=== PATIENT | male | born 1950 | race African-American/Black ===

== ENCOUNTER 2019-04-09 08:47 | Emergency (ER) | payer MEDICARE, OTHER ==
[~2019-04-09] VITALS: Ht 172.7 cm; Wt 65.0 kg
[~2019-04-09 08:47] MED LIST: ASPI-1393 PO; LISI40TA4 PO; METF-414 PO; PANT40TA4 PO; TERA5CAP4 PO
[2019-04-09] MEDS ORDERED: TETANUS, DIPHTHERIA, PERTUSSIS VAC/PF 0.5ML (>7YR OLD) IM ONE (09:30)
[2019-04-09] MEDS ORDERED: BACITRACIN ZINC OINT UDPKT TOP ONE (09:30)
[2019-04-09] MEDS ORDERED: TRAMADOL 50MG TABLET PO ONE (09:45)
[2019-04-09 13:00] VITALS: BP 136/62
== END 2019-04-09 13:11 | disposition home or self-care (01) ==
LOC: ER 08:47
DX: S90.812A Abrasion, left foot, initial encounter (principal); S90.811A Abrasion, right foot, initial encounter; W22.8XXA Striking against or struck by other objects, initial encounter; Y93.89 Activity, other specified; Y92.89 Other specified places as the place of occurrence of the external cause; Y99.8 Other external cause status; F32.9 Major depressive disorder, single episode, unspecified; E11.9 Type 2 diabetes mellitus without complications; K21.9 Gastro-esophageal reflux disease without esophagitis; E78.00 Pure hypercholesterolemia, unspecified; I10 Essential (primary) hypertension; F17.200 Nicotine dependence, unspecified, uncomplicated; F12.10 Cannabis abuse, uncomplicated; Z79.82 Long term (current) use of aspirin; Z79.899 Other long term (current) drug therapy
CPT/HCPCS: 73630; 90471; 90715; 99283

== ENCOUNTER 2019-04-10 12:00 | Emergency (ER) | payer OTHER ==
[~2019-04-10] VITALS: Ht 172.7 cm; Wt 117.0 kg
[2019-04-10] MEDS ORDERED: CLINDAMYCIN 900 MG in DEXTROSE 5% WATER 50 ML IV ONE (15:30)
[2019-04-10] MEDS ORDERED: HYDROCODONE/ACETAMINOPHEN 5/325MG TABLET PO ONE (15:30)
[2019-04-10] MEDS ORDERED: KETOROLAC 15MG/ML VIAL IV ONE (15:30)
[2019-04-10] MEDS ORDERED: SODIUM CHLORIDE 0.9% 500 ML IV ONE (15:30)
[2019-04-10 17:45] VITALS: BP 135/78
== END 2019-04-10 17:52 | disposition home or self-care (01) ==
LOC: ER 13:12
DX: L03.116 Cellulitis of left lower limb (principal); L03.115 Cellulitis of right lower limb; E11.628 Type 2 diabetes mellitus with other skin complications; I10 Essential (primary) hypertension; Z79.82 Long term (current) use of aspirin
CPT/HCPCS: 96365; 96375; 99283; J1885; J3490; J7040; J7060

== ENCOUNTER 2019-04-11 17:46 | Emergency (ER) | payer OTHER ==
[~2019-04-11] VITALS: Ht 172.7 cm; Wt 118.0 kg
[2019-04-11 23:43] VITALS: BP 148/76
== END 2019-04-11 23:46 | disposition home or self-care (01) ==
LOC: ER 17:46
DX: S91.302A Unspecified open wound, left foot, initial encounter (principal); S91.301A Unspecified open wound, right foot, initial encounter; X58.XXXA Exposure to other specified factors, initial encounter; Y93.89 Activity, other specified; Y92.89 Other specified places as the place of occurrence of the external cause; Y99.8 Other external cause status; E11.9 Type 2 diabetes mellitus without complications; I10 Essential (primary) hypertension; Z79.82 Long term (current) use of aspirin; Z79.899 Other long term (current) drug therapy
CPT/HCPCS: 82962; 99283

== ENCOUNTER 2021-06-30 10:07 | Emergency (ER) | payer OTHER ==
[~2021-06-30] VITALS: Ht 172.7 cm; Wt 121.0 kg
[~2021-06-30 10:07] MED LIST changes: -ASPI-1393 PO; +ASPI-1497 PO; +LISI40TA13 PO; -LISI40TA4 PO; -PANT40TA4 PO; +PANT40TA51 PO
[2021-06-30 11:09] LABS: BASOPHILS % 0.7 % (0.0-2.0); EOSINOPHILS % 4.2 % (0.0-5.0); HEMATOCRIT. 36.1 % (42.0-52.0); HEMOGLOBIN. 11.6 g/dL (14.0-18.0); LYMPHOCYTES % 17.9 % (20.0-50.0); MEAN CORPUSCULAR HEMOGLOBIN 28.9 pg (28.0-32.0); MEAN CORPUSCULAR VOLUME 89.5 fL (80.0-94.0); MEAN PLATELET VOLUME 8.6 fl (7.4-10.4); MONOCYTES % 4.9 % (2.0-8.0); NEUTROPHILS % 72.3 % (40.0-76.0); PLATELET 113 x1000/uL (130-400); RED BLOOD CELL COUNT 4.03 mill/uL (4.7-6.1); RED CELL DISTRIBUTION WIDTH 14.6 % (11.6-14.6)
[2021-06-30 11:20] LABS: CHLORIDE 107 mEq/L (98-107)
[2021-06-30 11:40] LABS: CLARITY URINE CLOUDY (CLEAR); COLOR URINE YELLOW (YELLOW); KETONES URINE TRACE (NEGATIVE); LEUKOCYTE ESTERASE URINE NEGATIVE (NEGATIVE); NITRITE URINE NEGATIVE (NEGATIVE); OCCULT BLOOD URINE NEGATIVE (NEGATIVE); PROTEIN URINE 3+ (NEGATIVE); SPECIFIC GRAVITY URINE 1.028 (1.005-1.030); UROBILINOGEN URINE 0.2 E.U./dL (0.2-1.0)
[2021-06-30] MEDS ORDERED: MORPHINE SULFATE 4 MG/ML CPJ (NOT FOR IM USE) IV ONE (11:45)
[2021-06-30] MEDS ORDERED: KETOROLAC 30MG/ML VIAL IV ONE (11:45)
[2021-06-30] MEDS ORDERED: ACET650T37 MT (15:29)
[2021-06-30 15:49] VITALS: BP 166/79
== END 2021-06-30 16:17 | disposition home or self-care (01) ==
LOC: ER 12:13
DX: N28.9 Disorder of kidney and ureter, unspecified (principal); R80.9 Proteinuria, unspecified; E11.9 Type 2 diabetes mellitus without complications; I10 Essential (primary) hypertension; Z79.82 Long term (current) use of aspirin
CPT/HCPCS: 36415; 74176; 80053; 81003; 82962; 83690; 85025; 96374; 96375; 99285; J1885; J2270

== ENCOUNTER 2021-07-12 03:36 | Emergency (ER) | payer OTHER ==
[~2021-07-12 03:36] MED LIST changes: +ACET650T37 MT
[2021-07-12 06:58] LABS: BASOPHILS % 0.6 % (0.0-2.0); EOSINOPHILS % 4.2 % (0.0-5.0); HEMATOCRIT. 32.5 % (42.0-52.0); HEMOGLOBIN. 10.9 g/dL (14.0-18.0); LYMPHOCYTES % 19.6 % (20.0-50.0); MEAN CORPUSCULAR HEMOGLOBIN 29.4 pg (28.0-32.0); MEAN CORPUSCULAR VOLUME 87.4 fL (80.0-94.0); MEAN PLATELET VOLUME 9.2 fl (7.4-10.4); NEUTROPHILS % 70.6 % (40.0-76.0); PLATELET 116 x1000/uL (130-400); RED BLOOD CELL COUNT 3.71 mill/uL (4.7-6.1); RED CELL DISTRIBUTION WIDTH 14.6 % (11.6-14.6)
[2021-07-12 07:33] LABS: CHLORIDE 107 mEq/L (98-107)
[2021-07-12 07:39] VITALS: BP 158/62
[2021-07-12] MEDS ORDERED: HYDR-4001 MT (08:21)
== END 2021-07-12 08:44 | disposition home or self-care (01) ==
LOC: ER 03:36
DX: B02.9 Zoster without complications (principal); R07.89 Other chest pain; R06.02 Shortness of breath; E11.9 Type 2 diabetes mellitus without complications; I10 Essential (primary) hypertension; F12.10 Cannabis abuse, uncomplicated; Z79.899 Other long term (current) drug therapy
CPT/HCPCS: 36415; 71045; 80053; 83880; 84484; 85025; 99284